=== PATIENT | female | born 1985 | race African-American/Black ===

== ENCOUNTER 2016-08-01 16:37 | Emergency (ER) | payer BC ==
[~2016-08-01 16:37] MED LIST: ALBUTEROL5 INH; DULERA 100 MCG/13 GM INH; LEVAQUIN750 MG PO; NORV10 PO; P10 PO; SINGULAIR1 PO; SYMBICORT 160/41 INH INH; VENTOLIN HFA INH; ZANTAC 75 PO
== END 2016-08-01 17:09 | disposition home or self-care (01) ==
LOC: ER 16:37
DX: J31.0 Chronic rhinitis (principal); J45.909 Unspecified asthma, uncomplicated; I10 Essential (primary) hypertension; E11.9 Type 2 diabetes mellitus without complications
CPT/HCPCS: 71020; 94640; 96372; 99284; J2930